=== PATIENT | female | born 2000 | race Caucasian/White ===

== ENCOUNTER 2020-04-11 18:27 | Emergency (ER) | payer OTHER ==
[~2020-04-11] VITALS: Ht 170.2 cm; Wt 78.5 kg
[2020-04-11 18:32] VITALS: BP 136/77; Ht 170.2 cm; Wt 78.5 kg
[2020-04-11 19:46] LABS: BASOPHIL % 0.6 % (0.2-1.3); PLATELET COUNT 283 x10^3mcL (179-408)
== END 2020-04-11 20:56 | disposition home or self-care (01) ==
LOC: ED 18:27
PROVIDERS: Emergency Medicine
DX: O26.851 Spotting complicating pregnancy, first trimester (principal); Z3A.01 Less than 8 weeks gestation of pregnancy